=== PATIENT | female | born 1990 | race Two or more races ===

== ENCOUNTER 2024-11-05 16:19 | Inpatient (IN) ==
[2024-11-05 16:39] VITALS: BMI 42.7
[2024-11-05] MEDS ORDERED: ZOFRAN INJ 4 MG VIAL IVP PRN (17:03)
[2024-11-05] MEDS ORDERED: REGLAN INJ 10 MG VIAL IVP PRN (17:03)
[2024-11-05] MEDS ORDERED: NUBAIN INJ 20 MG AMP IVP PRN (17:03)
[2024-11-05 17:29] LABS: BASOPHILS # (AUTO) 0.1 X10^3/uL (0.0-0.1); BASOPHILS % (AUTO) 0.7 % (0.2-1.0); EOSINOPHILS # (AUTO) 0.1 x10^3/uL (0.0-0.2); EOSINOPHILS % (AUTO) 0.6 % (0.9-2.9); HEMATOCRIT 36.8 % (36.0-47.0); HEMOGLOBIN 12.6 g/dL (12.0-16.0); LYMPHOCYTES % (AUTO) 23.6 % (21.0-51.0); MEAN CORPUSCULAR HEMOGLOBIN 29.7 pg (27.0-34.0); MEAN CORPUSCULAR HGB CONC 34.3 g/dL (33.0-35.0); MEAN CORPUSCULAR VOLUME 86.6 fL (80.0-100.0); MEAN PLATELET VOLUME 9.8 fL (7.4-11.0); MONOCYTES # (AUTO) 0.6 x10^3/uL (0.3-0.8); MONOCYTES % (AUTO) 7.3 % (0.0-13.0); NEUTROPHILS # (AUTO) 5.8 x10^3/uL (2.2-4.8); NEUTROPHILS % (AUTO) 67.8 % (42.0-75.0); PLATELET COUNT 172 X10^3/uL (150.0-450.0); RED BLOOD COUNT 4.24 X10^6/uL (3.5-5.4); RED CELL DISTRIBUTION WIDTH 14.3 % (11.6-16.5); WHITE BLOOD COUNT 8.6 X10^3/uL (3.6-10.0)
[2024-11-05] MEDS: LR 1,000 ML IV 1,000 ML IV SCH (17:35)
[2024-11-05 17:37] LABS: BLOOD UREA NITROGEN 7 mg/dL (7-18); CALCIUM 8.4 mg/dL (8.5-10.1); CARBON DIOXIDE 23.3 mmol/L (21-32); CHLORIDE 106 mmol/L (98-107); CREATININE 0.67 mg/dL (0.55-1.02); GLUCOSE 97 mg/dL (65-99); POTASSIUM 3.6 mmol/L (3.5-5.1); SODIUM 141 mmol/L (136-145); eGFR NON BLACK RACES > 60 (>60)
[2024-11-05 17:41] LABS: AMNISURE ROM TEST NO MEMBRANES RUPTURE (NO RUPTURE)
[2024-11-05 17:44] LABS: BILIRUBIN,URINE NEGATIVE (NEGATIVE); BLOOD/HEMOGLOBIN,URINE 5+ (NEGATIVE); GLUCOSE, URINE NEGATIVE (NEGATIVE); KETONES,URINE NEGATIVE (NEGATIVE); LEUKOCYTE ESTERASE ,URINE 2+ (NEGATIVE); NITRITES,URINE NEGATIVE (NEGATIVE); PROTEIN,URINE 2+ (NEGATIVE); UROBILINOGEN,URINE NORMAL (NORMAL)
[2024-11-05 17:49] LABS: APPEARANCE,URINE SLIGHTLY HAZY (CLEAR); COLOR,URINE YELLOW (YELLOW)
[2024-11-05] MEDS: LR 1,000 ML IV 1,000 ML IV ONE (17:50)
[2024-11-05] MEDS: PITOCIN ONE (17:51)
[2024-11-05 17:52] LABS: BACTERIA,URINE 1+ /HPF (NEGATIVE); SQUAMOUS EPITHELIAL CELL,UR MANY /HPF (NEGATIVE)
[2024-11-05] MEDS: OXYTOCIN 20 UNIT/1,000 ML-NS 20 UNIT/1,000 ML PLAST..BAG IV PRN (18:15)
[2024-11-05 19:06] LABS: RAPID PLASMA REAGIN NONREACTIVE (NONREACTIVE)
[2024-11-05] MEDS: NUBAIN INJ 10 MG AMP ONE (21:45)
[2024-11-06] MEDS: BETADINE SOLN ONE (00:50)
[2024-11-06] MEDS: PITOCIN IVP ONE (01:00)
[2024-11-06] MEDS ORDERED: MOTRIN TAB 800 MG PO PRN (01:28)
[2024-11-06] MEDS: OXYTOCIN 20 UNIT/1,000 ML-NS 20 UNIT/1,000 ML PLAST..BAG IV SCH ×2 (02:15→05:59)
[2024-11-06] MEDS: MOTRIN TAB 800 MG PO PRN (04:18)
[2024-11-06 05:38] LABS: HEMATOCRIT 36.9 % (36.0-47.0); HEMOGLOBIN 12.4 g/dL (12.0-16.0)
[2024-11-07 08:26] VITALS: TEMP 97.5
[2024-11-07] MEDS: ADACEL or BOOSTRIX TDaP VACCINE IM ONE (10:53)
[2024-11-07 11:46] VITALS: BP 153/84; PULSE 68; RESP 18; O2SAT 98
== END 2024-11-07 13:50 | disposition home or self-care (01) | DRG 807 ==
LOC: ER 16:19 → LD 17:04 → MED/SURG 11-06 02:32
PROVIDERS: ADMIT Obstetrics & Gynecology Obstetrics; ATTEND Obstetrics & Gynecology Obstetrics
DX: Z37.0 Single live birth; Z3A.40 40 weeks gestation of pregnancy; O24.429 Gestational diabetes mellitus in childbirth, unspecified control